=== PATIENT | male | born 1955 | race Caucasian/White ===

== ENCOUNTER 2023-04-11 10:38 | Day surgery (SDC) | payer OTHER ==
[~2023-04-11] VITALS: Ht 165.1 cm; Wt 61.7 kg
[~2023-04-11 10:38] MED LIST: IOHEXOL 300 mgI/mL, 50 mL INFUS..BTL IV ONE; LIDOCAINE 2%, 20 ML MDV ONE; NORMAL SALINE 10 ML VIAL ONE; methylPREDNISolone ACETATE 40 MG/ML ONE
[2023-04-11 12:34] VITALS: O2SAT 98
[2023-04-11] MEDS ORDERED: DIPHENHYDRAMINE INJ 50 MG/ML VIAL ONE (12:51)
[2023-04-11] MEDS: fentaNYL CITRATE/PF 100 MCG/2 ML AMP ONE (13:24)
[2023-04-11] MEDS: MIDAZOLAM HCL 5 MG/5 ML VIAL ONE (13:25)
[2023-04-11 14:20] VITALS: BP_SYST 134; PULSE 62; RESP 20
== END 2023-04-11 14:20 | disposition home or self-care (01) ==
LOC: SDS 10:38 → SMU 10:44 → SDS 14:20
PROVIDERS: ATTEND Internal Medicine
DX: M51.16 Intervertebral disc disorders with radiculopathy, lumbar region (principal); M51.9 Unspecified thoracic, thoracolumbar and lumbosacral intervertebral disc disorder; Z98.890 Other specified postprocedural states; Z79.899 Other long term (current) drug therapy
CPT/HCPCS: 62323; J1200; J1030; J2250; J3010; Q9967; 76000; J2001